=== PATIENT | male | born 1945 | race Caucasian/White ===

== ENCOUNTER 2018-03-30 11:08 | Emergency (ER) | payer MEDICARE, BC ==
[2018-03-30 11:13] VITALS: BP 103/50
[2018-03-30 12:28] LABS: ANION GAP 13.1; CHLORIDE,CL 102 mmol/L (101-111); SODIUM,NA 136 mmol/L (135-145)
--- NOTE | 2018-03-30 13:05 | EDM.PDOC ---
ED HPI GENERAL MEDICAL PROBLEM - General Chief Complaint: General Time Seen by Provider: 03/30/18 11:30 Source of Information: Reports: Patient, Family, RN, RN Notes Reviewed History Limitations: Reports: Other (lethargic) - History of Present Illness INITIAL COMMENTS - FREE TEXT/NARRATIVE: Patient presents to ER by [facility] with a complaint that he fell out of bed. He has weakness. states his speech was slurred this morning. states he was confused just after the incident. He has had diarrhea for 2 months and not eating well. He has shortness of breath which is chronic. He has had no chest pain. Onset: Today Duration: Constant Location: Reports: Generalized Quality: Reports: Ache Severity: Moderate Improves with: Reports: None Worsens with: Reports: None Associated Symptoms: Reports: No Other Symptoms - Related Data Allergies Allergy/AdvReac Type Severity Reaction Status Date / Time meperidine HCl [From Demerol] Allergy Agitation Verified 10/07/15 21:18 Home Meds: Home Meds Budesonide/Formoterol [Symbicort 160-4.5 Mcg Inhaler] 2 puff IH Q4H PRN [History] Citalopram [Celexa] 20 mg PO DAILY 11/07/15 [History] Colchicine [Colcrys] 0.6 mg PO ASDIRECTED PRN 11/07/15 [History] Hydrocodone/Acetaminophen [Hydrocodon-Acetaminophn 10-325] 1 each PO ASDIRECTED PRN 11/07/15 [History] Insulin Aspart [Novolog] 20 unit SQ TIDAC 11/07/15 [History] Insulin Glarg,Human.Rec.Analog [LantUS Solostar] 60 unit SUBCUT BEDTIME [History] Krill/Om-3/DHA/EPA/Phospho/Ast [Krill Oil 500 mg Softgel] 1 each PO DAILY [History] LORazepam [Ativan] 1 mg PO DAILY PRN 11/07/15 [History] Losartan Potassium [Cozaar] 100 mg PO DAILY 11/07/15 [History] Metoprolol Tartrate 50 mg PO BID 11/07/15 [History] QUEtiapine Fumarate [Seroquel] 50 mg PO BID 11/07/15 [History] SitaGLIPtin [Januvia] 100 mg PO DAILY 11/07/15 [History] Spironolactone [Aldactone] 25 mg PO DAILY 11/07/15 [History] Tamsulosin HCl 0.4 mg PO DAILY 11/07/15 [History] atorvaSTATin [Lipitor] 10 mg PO BEDTIME 11/07/15 [History] fentaNYL [Fentanyl] 25 mcg TD ASDIRECTED 11/07/15 [History] hydroCHLOROthiazide [Hydrochlorothiazide] 50 mg PO QAM 11/07/15 [History] metFORMIN [Glucophage XR] 500 mg PO BIDMEALS 11/07/15 [History] traZODone 100 mg PO BEDTIME 11/07/15 [History] Past Medical History - Past Health History Medical/Surgical History: Denies Medical/Surgical History HEENT History: Reports: Hard of Hearing, Impaired Vision Cardiovascular History: Reports: Hypertension Other Cardiovascular History: "heart problems" Respiratory History: Reports: COPD, Other (See Below) Other Respiratory History: related to second hand smoke exposure. Gastrointestinal History: Reports: None Genitourinary History: Reports: None Musculoskeletal History: Reports: Other (See Below) Other Musculoskeletal History: chronic hip pain Neurological History: Reports: None Psychiatric History: Reports: Dementia Endocrine/Metabolic History: Reports: Diabetes, Type II Hematologic History: Reports: None Immunologic History: Reports: None Oncologic (Cancer) History: Reports: Liver Dermatologic History: Reports: None - Infectious Disease History Infectious Disease History: Reports: None - Past Surgical History Head Surgeries/Procedures: Reports: None HEENT Surgical History: Reports: None Cardiovascular Surgical History: Reports: Other (See Below) (angioplasties) Social & Family History - Family History Family Medical History: Noncontributory - Tobacco Use Smoking Status *Q: Never Smoker Second Hand Smoke Exposure: No - Caffeine Use Caffeine Use: Reports: Coffee - Recreational Drug Use Recreational Drug Use: No ED ROS GENERAL - Review of Systems Review Of Systems: ROS reveals no pertinent complaints other than HPI. ED EXAM, GENERAL - Physical Exam Exam: See Below Exam Limited By: Other (somewhat lethargic) General Appearance: Other (lethargic) Eye Exam: Bilateral Eye: EOMI, Normal Inspection, PERRL Ears: Normal External Exam, Normal Canal, Hearing Grossly Normal, Normal TMs Nose: Normal Inspection, Normal Mucosa, No Blood Throat/Mouth: Normal Inspection, Normal Lips, Normal Teeth, Normal Gums, Normal Oropharynx, Normal Voice, No Airway Compromise Head: Atraumatic, Normocephalic Neck: Normal Inspection, Supple, Non-Tender, Full Range of Motion Respiratory/Chest: Other (lung sounds diminished) Cardiovascular: Normal Peripheral Pulses, Regular Rate, Rhythm, No Edema, No Gallop, No JVD, No Murmur, No Rub GI/Abdominal: Other (large and distended) (Male) Exam: Deferred Rectal (Males) Exam: Deferred Back Exam: Normal Inspection Extremities: Other (Shoulders strained from typing to lift self up. ) Neurological: Other (lethargic) Skin Exam: Other (left elbow skin tear) Lymphatic: Other (right post auriciular) EKG INTERPRETATION EKG Date: 03/30/18 Time: 12:00 Rhythm: Other (sinus bradycardia) Rate (Beats/Min): 52 P-Wave: Present QRS: RBBB ST-T: Normal QT: Prolonged Comparison: NA - No Prior EKG Course - Vital Signs Last Recorded V/S: Last Vital Signs Temp 97.3 F 03/30/18 11:08 Pulse 56 L 03/30/18 11:08 Resp 18 03/30/18 11:08 BP 103/50 L 03/30/18 11:08 Pulse Ox 95 03/30/18 11:08 - Orders/Labs/Meds Orders: Active Orders 24 hr Category Date Time Status EKG Documentation Completion [RC] STAT Care 03/30/18 11:43 Active Labs: Laboratory Tests 03/30/18 03/30/18 03/30/18 Range/Units 12:02 12:02 12:02 WBC 5.8 (5.0-10.0) 10^3/uL RBC 4.84 (4.6-6.2) 10^6/uL Hgb 13.2 L (14.0-18.0) g/dL Hct 42.2 (40.0-54.0) % MCV 87.2 (80-100) fL MCH 27.3 (27.0-34.0) pg MCHC 31.3 L (33.0-35.0) g/dL Plt Count 142 L (150-450) 10^3/uL Neut % (Auto) 63.8 (42.2-75.2) % Lymph % (Auto) 25.0 (20.5-50.1) % [place] % (Auto) 8.8 H (2-8) % Eos % (Auto) 2.1 (1.0-3.0) % Baso % (Auto) 0.3 (0.0-1.0) % PT 9.9 (9.0-12.0) SEC INR 1.0 (0.9-1.2) Sodium 136 (135-145) mmol/L Potassium 4.1 (3.6-5.0) mmol/L Chloride 102 (101-111) mmol/L Carbon Dioxide 25.0 (21.0-31.0) mmol/L Anion Gap 13.1 BUN 14 (7-18) mg/dL Creatinine 0.9 (0.6-1.3) mg/dL Est Cr Clr Drug Dosing 75.48 mL/min Estimated GFR (MDRD) > 60 BUN/Creatinine Ratio 15.55 Glucose 77 (74-105) mg/dL Calcium 8.1 L (8.4-10.2) mg/dl Total Bilirubin 0.6 (0.2-1.0) mg/dL AST 36 (10-42) IU/L ALT 29 (10-60) IU/L Alkaline Phosphatase 117 (42-121) IU/L Troponin I < 0.02 (0.00-0.02) ng/ml Total Protein 6.1 L (6.7-8.2) g/dl Albumin 2.3 L (3.2-5.5) g/dl Globulin 3.8 Albumin/Globulin Ratio 0.61 Urine Color (YELLOW) Urine Appearance (CLEAR) Urine pH (5.0-9.0) Ur Specific [place] (1.005-1.030) Urine Protein (NEGATIVE) Urine Glucose (UA) (NEGATIVE) Urine Ketones (NEGATIVE) Urine Occult Blood (NEGATIVE) Urine Nitrite (NEGATIVE) Urine Bilirubin (NEGATIVE) Urine Urobilinogen (0.2-1.0) mg/dL Ur Leukocyte Esterase (NEGATIVE) 03/30/18 Range/Units 13:10 WBC (5.0-10.0) 10^3/uL RBC (4.6-6.2) 10^6/uL Hgb (14.0-18.0) g/dL Hct (40.0-54.0) % MCV (80-100) fL MCH (27.0-34.0) pg MCHC (33.0-35.0) g/dL Plt Count (150-450) 10^3/uL Neut % (Auto) (42.2-75.2) % Lymph % (Auto) (20.5-50.1) % [place] % (Auto) (2-8) % Eos % (Auto) (1.0-3.0) % Baso % (Auto) (0.0-1.0) % PT (9.0-12.0) SEC INR (0.9-1.2) Sodium (135-145) mmol/L Potassium (3.6-5.0) mmol/L Chloride (101-111) mmol/L Carbon Dioxide (21.0-31.0) mmol/L Anion Gap BUN (7-18) mg/dL Creatinine (0.6-1.3) mg/dL Est Cr Clr Drug Dosing mL/min Estimated GFR (MDRD) BUN/Creatinine Ratio Glucose (74-105) mg/dL Calcium (8.4-10.2) mg/dl Total Bilirubin (0.2-1.0) mg/dL AST (10-42) IU/L ALT (10-60) IU/L Alkaline Phosphatase (42-121) IU/L Troponin I (0.00-0.02) ng/ml Total Protein (6.7-8.2) g/dl Albumin (3.2-5.5) g/dl Globulin Albumin/Globulin Ratio Urine Color Yellow (YELLOW) Urine Appearance Clear (CLEAR) Urine pH 7.0 (5.0-9.0) Ur Specific [place] 1.015 (1.005-1.030) Urine Protein Negative (NEGATIVE) Urine Glucose (UA) Negative (NEGATIVE) Urine Ketones Negative (NEGATIVE) Urine Occult Blood Negative (NEGATIVE) Urine Nitrite Negative (NEGATIVE) Urine Bilirubin Negative (NEGATIVE) Urine Urobilinogen 1.0 (0.2-1.0) mg/dL Ur Leukocyte Esterase Negative (NEGATIVE) - Radiology Interpretation Free Text/Narrative:: CT head w/o contrast: FINDINGS: Brain: Prominent sulci. Patchy hypodensity of the cerebral white matter which are nonspecific but likely secondary to microangiopathic changes. Ventricles: The ventricles are prominent secondary to diffuse volume loss/ atrophy. Bones/joints: Normal. No acute fracture. Sinuses: Normal as visualized. No acute sinusitis. Mastoid air cells: Normal as visualized. No mastoid effusion. Soft tissues: Normal. IMPRESSION: Chronic age related changes but no evidence of acute intracranial pathology. Thank you for allowing us to participate in the care of your patient. Dictated and Authenticated by: Norma Pickard MD 03/30/2018 12:03 PM Central Time ([place] & [place]) See rad report Departure - Departure Time of Disposition: 13:27 Disposition: Home, Self-Care 01 Condition: Fair Clinical Impression: Generalized weakness Fall at home Qualifiers: Encounter type: initial encounter Qualified Code(s): W19.XXXA - Unspecified fall, initial encounter Skin tear of elbow without complication Qualifiers: Encounter type: initial encounter Laterality: left Qualified Code(s): S51.012A - Laceration without foreign body of left elbow, initial encounter - Discharge Information *PRESCRIPTION DRUG MONITORING PROGRAM REVIEWED*: No *COPY OF PRESCRIPTION DRUG MONITORING REPORT IN PATIENT LOBO: No Instructions: Skin Tear Care, [id number], Weakness, [id number] Referrals: Beryl Syed, INSURANCE COUNSEL [Primary Care Provider] - Forms: ED Department Discharge Additional Instructions: Rest Follow up with your primary care facility - My Orders Last 24 Hours: My Active Orders 03/30/18 11:43 EKG Documentation Completion [RC] STAT - Assessment/Plan Last 24 Hours: My Active Orders 03/30/18 11:43 EKG Documentation Completion [RC] STAT
== END 2018-03-30 13:40 | disposition home or self-care (01) ==
LOC: DL.ED 11:08
DX: S51.012A Laceration without foreign body of left elbow, initial encounter (principal); R53.1 Weakness; E11.9 Type 2 diabetes mellitus without complications; I10 Essential (primary) hypertension; J44.9 Chronic obstructive pulmonary disease, unspecified; W19.XXXA Unspecified fall, initial encounter; Z88.8 Allergy status to other drugs, medicaments and biological substances; Z79.899 Other long term (current) drug therapy
CPT/HCPCS: 36415; 70450; 80053; 81003; 84484; 85025; 85610; 93005; 99285

== ENCOUNTER 2018-07-07 20:47 | Inpatient (IN) | payer MEDICARE, BC ==
--- NOTE | 2018-07-07 21:09 | EDM.PDOC ---
ED HPI GENERAL MEDICAL PROBLEM - General Chief Complaint: General Stated Complaint: AMBULANCE Time Seen by Provider: 07/07/18 21:07 Source of Information: Reports: Patient, EMS, Family, RN History Limitations: Reports: No Limitations - History of Present Illness INITIAL COMMENTS - FREE TEXT/NARRATIVE: fall at home last matty, hit head, hypoglycemic episode, weaker over past 6 months , [place] warm tonight and vomited x 2 tonight so called ambulance. Ambulatory at home with walker lives with . States hit back of head and right side of neck on door frame last matty. No loss of consciousness, Pain c/o lateral but not different before fall. 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 Fell last week while in qing against car, multiple skin tears to right forearm, Patient states feel like legs give out, and balance has been poor. Family friend reports patient has minimal activity spends most of day in chair only getting up to use bathroom, Even eats in chair. Uses walker when ambulating. Remote hx liver cancer. Remote hx [facility] 40 years ago. Seen at [facility] last week for hypoglycemic episode and Lantus insulin decreased from 82 units at bed to 55 units. also noted that appeared patient doubled up on night time meds last matty as 2 night boxes empty. Patient denies pain at present No nausea. EMS blood sugar 104. Primary care with [facility] Beryl Syed NP. Receives medications through ID. Has not been seen regularly by ID, only for puprose of medication refills and hearing aides. Family friend notes some concern with multiple medical issues ore overwhelming to and questions if possible for home health assistance would be available. Treatments INSPECTOR INSULATION: Reports: IV/IO Generalized Pain Score (Numeric/FACES): 7 - Related Data Allergies Allergy/AdvReac Type Severity Reaction Status Date / Time meperidine HCl [From Demerol] Allergy Agitation Verified 07/07/18 21:01 Home Meds: Home Meds Citalopram [Celexa] 20 mg PO DAILY 11/07/15 [History] Insulin Aspart [Novolog] 20 unit SQ TIDAC 11/07/15 [History] Insulin Glarg,Human.Rec.Analog [LantUS Solostar] 60 unit SUBCUT BEDTIME [History] Krill/Om-3/DHA/EPA/Phospho/Ast [Krill Oil 500 mg Softgel] 1 each PO DAILY [History] Losartan Potassium [Cozaar] 100 mg PO DAILY 11/07/15 [History] Metoprolol Tartrate 50 mg PO BID 11/07/15 [History] Tamsulosin HCl 0.4 mg PO DAILY 11/07/15 [History] atorvaSTATin [Lipitor] 20 mg PO BEDTIME 11/07/15 [History] metFORMIN [Glucophage XR] 1,000 mg PO BIDMEALS 11/07/15 [History] traZODone 50 mg PO BEDTIME 11/07/15 [History] Aspirin 81 mg PO DAILY 07/07/18 [History] ClonazePAM [KlonoPIN] 0.5 mg PO BID 07/07/18 [History] Ibuprofen 200 mg PO ASDIRECTED PRN 07/07/18 [History] Isosorbide Dinitrate 30 mg PO DAILY 07/07/18 [History] Past Medical History - Past Health History Medical/Surgical History: Denies Medical/Surgical History HEENT History: Reports: Hard of Hearing, Impaired Vision Cardiovascular History: Reports: Hypertension Other Cardiovascular History: "heart problems" Respiratory History: Reports: COPD, Other (See Below) Other Respiratory History: related to second hand smoke exposure. Gastrointestinal History: Reports: None Genitourinary History: Reports: None Musculoskeletal History: Reports: Other (See Below) Other Musculoskeletal History: chronic hip pain Neurological History: Reports: None Psychiatric History: Reports: Dementia Endocrine/Metabolic History: Reports: Diabetes, Type II Hematologic History: Reports: None Immunologic History: Reports: None Oncologic (Cancer) History: Reports: Liver Dermatologic History: Reports: None - Infectious Disease History Infectious Disease History: Reports: None - Past Surgical History Head Surgeries/Procedures: Reports: None HEENT Surgical History: Reports: None Cardiovascular Surgical History: Reports: Other (See Below) Social & Family History - Family History Family Medical History: Noncontributory - Tobacco Use Smoking Status *Q: Former Smoker Used Tobacco, but Quit: No - Caffeine Use Caffeine Use: Reports: Coffee - Recreational Drug Use Recreational Drug Use: No ED ROS GENERAL - Review of Systems Review Of Systems: See Below Constitutional: Reports: Weakness, Decreased Appetite HEENT: Reports: Hearing Loss Respiratory: Denies: Shortness of Breath, Wheezing Cardiovascular: Denies: Chest Pain, Lightheadedness, Orthopnea, Palpitations Endocrine: Reports: Low Glucose GI/Abdominal: Reports: Decreased Appetite, Vomiting (x2). Denies: Abdominal Pain, Nausea Skin: Reports: Bruising, Wound (mulitiple skin tears to upper extremities) Neurological: Reports: Weakness (generalized), Gait Disturbance (poor balance, unchanged since recent falls). Denies: Confusion, Dizziness, Headache, Seizure , Trouble Speaking, Change in Speech ED EXAM, GENERAL - Physical Exam Exam: See Below Exam Limited By: No Limitations General Appearance: Alert, No Apparent Distress, Obese Eye Exam: Bilateral Eye: EOMI Ears: Normal External Exam, Hearing Loss (mild) Nose: Normal Inspection Throat/Mouth: Normal Inspection Head: Atraumatic, Normocephalic, Other (tender right lateral occipital ) Respiratory/Chest: No Respiratory Distress, Decreased Breath Sounds (bases). No : Rhonchi, Wheezing Cardiovascular: Normal Peripheral Pulses, Regular Rate, Rhythm, Tachycardia. No : No Edema (2) GI/Abdominal: Normal Bowel Sounds, Soft Extremities: Normal Range of Motion Neurological: Alert, Oriented, Normal Cognition Psychiatric: Normal Affect Skin Exam: Warm, Dry Course - Vital Signs Last Recorded V/S: Last Vital Signs Temp 97.8 F 07/08/18 00:01 Pulse 96 07/08/18 00:01 Resp 20 07/08/18 00:01 BP 131/64 07/08/18 00:01 Pulse Ox 93 L 07/08/18 00:01 - Orders/Labs/Meds Orders: Active Orders 24 hr Category Date Time Status CULTURE BLOOD [BC] Stat Lab 07/07/18 21:15 Results CULTURE BLOOD [BC] Stat Lab 07/07/18 21:20 Received Blood Culture x2 Reflex Set [OM.PC] Stat Oth 07/07/18 21:03 Ordered Medication Orders Aspirin (Aspirin) 81 mg PO DAILY [facility] Atorvastatin Calcium (Lipitor) 20 mg PO BEDTIME STEVE Citalopram Hydrobromide (Celexa) 20 mg PO DAILY [facility] Clonazepam (Klonopin) 0.5 mg PO BID [facility] Heparin Sodium (Porcine) (Heparin Sodium) 5,000 units SUBCUT Q8HR [facility] Potassium Chloride/Dextrose/Sod Cl (D5 Ns With 20 Meq Kcl) 1,000 mls @ 75 mls/ hr IV ASDIRECTED STEVE Last Admin: 07/08/18 00:58 Dose: 75 mls/hr Isosorbide Dinitrate (Isordil) 30 mg PO DAILY [facility] Losartan Potassium (Cozaar) 100 mg PO DAILY [facility] Metoprolol Tartrate (Lopressor) 50 mg PO BID [facility] Ondansetron HCl (Zofran) 4 mg IVPUSH Q6H PRN PRN Reason: Nausea/Vomiting Tamsulosin HCl (Flomax) 0.4 mg PO DAILY [facility] Trazodone HCl (Trazodone) 50 mg PO BEDTIME [facility] Labs: Laboratory Tests 07/07/18 07/07/18 07/07/18 Range/Units 21:20 21:20 21:20 WBC 8.5 (5.0-10.0) 10^3/uL RBC 5.61 (4.6-6.2) 10^6/uL Hgb 15.4 D (14.0-18.0) g/dL Hct 47.5 (40.0-54.0) % MCV 84.7 (80-100) fL MCH 27.5 (27.0-34.0) pg MCHC 32.4 L (33.0-35.0) g/dL Plt Count 137 L (150-450) 10^3/uL Neut % (Auto) 73.0 (42.2-75.2) % Lymph % (Auto) 17.3 L (20.5-50.1) % [place] % (Auto) 8.9 H (2-8) % Eos % (Auto) 0.6 L (1.0-3.0) % Baso % (Auto) 0.2 (0.0-1.0) % PT (9.0-12.0) SEC INR (0.9-1.2) Sodium 137 (135-145) mmol/L Potassium 4.1 (3.6-5.0) mmol/L Chloride 107 (101-111) mmol/L Carbon Dioxide 22.0 (21.0-31.0) mmol/L Anion Gap 12.1 BUN 17 (7-18) mg/dL Creatinine 0.9 (0.6-1.3) mg/dL Est Cr Clr Drug Dosing 76.67 mL/min Estimated GFR (MDRD) > 60 BUN/Creatinine Ratio 18.88 Glucose 88 (74-105) mg/dL POC Glucose (83-110) mg/dl Lactic Acid 1.6 (0.5-2.2) mmol/L Calcium 8.3 L (8.4-10.2) mg/dl Total Bilirubin 0.9 (0.2-1.0) mg/dL AST 38 (10-42) IU/L ALT 28 (10-60) IU/L Alkaline Phosphatase 149 H (42-121) IU/L CK-MB (CK-2) (0.4-4.7) ng/mL Troponin I 0.02 (0.00-0.02) ng/ml B-Natriuretic Peptide (0-100) pg/ml Total Protein 6.4 L (6.7-8.2) g/dl Albumin 2.6 L (3.2-5.5) g/dl Globulin 3.8 Albumin/Globulin Ratio 0.68 Amylase 30 (28-100) U/L Urine Color (YELLOW) Urine Appearance (CLEAR) Urine pH (5.0-9.0) Ur Specific [place] (1.005-1.030) Urine Protein (NEGATIVE) Urine Glucose (UA) (NEGATIVE) Urine Ketones (NEGATIVE) Urine Occult Blood (NEGATIVE) Urine Nitrite (NEGATIVE) Urine Bilirubin (NEGATIVE) Urine Urobilinogen (0.2-1.0) mg/dL Ur Leukocyte Esterase (NEGATIVE) Ketones Negative 07/07/18 07/07/18 07/07/18 Range/Units 21:20 21:20 21:20 WBC (5.0-10.0) 10^3/uL RBC (4.6-6.2) 10^6/uL Hgb (14.0-18.0) g/dL Hct (40.0-54.0) % MCV (80-100) fL MCH (27.0-34.0) pg MCHC (33.0-35.0) g/dL Plt Count (150-450) 10^3/uL Neut % (Auto) (42.2-75.2) % Lymph % (Auto) (20.5-50.1) % [place] % (Auto) (2-8) % Eos % (Auto) (1.0-3.0) % Baso % (Auto) (0.0-1.0) % PT 10.0 (9.0-12.0) SEC INR 1.0 (0.9-1.2) Sodium (135-145) mmol/L Potassium (3.6-5.0) mmol/L Chloride (101-111) mmol/L Carbon Dioxide (21.0-31.0) mmol/L Anion Gap BUN (7-18) mg/dL Creatinine (0.6-1.3) mg/dL Est Cr Clr Drug Dosing mL/min Estimated GFR (MDRD) BUN/Creatinine Ratio Glucose (74-105) mg/dL POC Glucose (83-110) mg/dl Lactic Acid (0.5-2.2) mmol/L Calcium (8.4-10.2) mg/dl Total Bilirubin (0.2-1.0) mg/dL AST (10-42) IU/L ALT (10-60) IU/L Alkaline Phosphatase (42-121) IU/L CK-MB (CK-2) 2.00 (0.4-4.7) ng/mL Troponin I (0.00-0.02) ng/ml B-Natriuretic Peptide 76 (0-100) pg/ml Total Protein (6.7-8.2) g/dl Albumin (3.2-5.5) g/dl Globulin Albumin/Globulin Ratio Amylase (28-100) U/L Urine Color (YELLOW) Urine Appearance (CLEAR) Urine pH (5.0-9.0) Ur Specific [place] (1.005-1.030) Urine Protein (NEGATIVE) Urine Glucose (UA) (NEGATIVE) Urine Ketones (NEGATIVE) Urine Occult Blood (NEGATIVE) Urine Nitrite (NEGATIVE) Urine Bilirubin (NEGATIVE) Urine Urobilinogen (0.2-1.0) mg/dL Ur Leukocyte Esterase (NEGATIVE) Ketones 07/07/18 07/07/18 07/07/18 Range/Units 21:24 22:03 22:50 WBC (5.0-10.0) 10^3/uL RBC (4.6-6.2) 10^6/uL Hgb (14.0-18.0) g/dL Hct (40.0-54.0) % MCV (80-100) fL MCH (27.0-34.0) pg MCHC (33.0-35.0) g/dL Plt Count (150-450) 10^3/uL Neut % (Auto) (42.2-75.2) % Lymph % (Auto) (20.5-50.1) % [place] % (Auto) (2-8) % Eos % (Auto) (1.0-3.0) % Baso % (Auto) (0.0-1.0) % PT (9.0-12.0) SEC INR (0.9-1.2) Sodium (135-145) mmol/L Potassium (3.6-5.0) mmol/L Chloride (101-111) mmol/L Carbon Dioxide (21.0-31.0) mmol/L Anion Gap BUN (7-18) mg/dL Creatinine (0.6-1.3) mg/dL Est Cr Clr Drug Dosing mL/min Estimated GFR (MDRD) BUN/Creatinine Ratio Glucose (74-105) mg/dL POC Glucose 66 L 118 H (83-110) mg/dl Lactic Acid (0.5-2.2) mmol/L Calcium (8.4-10.2) mg/dl Total Bilirubin (0.2-1.0) mg/dL AST (10-42) IU/L ALT (10-60) IU/L Alkaline Phosphatase (42-121) IU/L CK-MB (CK-2) (0.4-4.7) ng/mL Troponin I (0.00-0.02) ng/ml B-Natriuretic Peptide (0-100) pg/ml Total Protein (6.7-8.2) g/dl Albumin (3.2-5.5) g/dl Globulin Albumin/Globulin Ratio Amylase (28-100) U/L Urine Color Yellow (YELLOW) Urine Appearance Clear (CLEAR) Urine pH 5.5 (5.0-9.0) Ur Specific [place] 1.015 (1.005-1.030) Urine Protein Negative (NEGATIVE) Urine Glucose (UA) Negative (NEGATIVE) Urine Ketones Negative (NEGATIVE) Urine Occult Blood Negative (NEGATIVE) Urine Nitrite Negative (NEGATIVE) Urine Bilirubin Negative (NEGATIVE) Urine Urobilinogen 1.0 (0.2-1.0) mg/dL Ur Leukocyte Esterase Negative (NEGATIVE) Ketones 07/07/18 Range/Units 23:28 WBC (5.0-10.0) 10^3/uL RBC (4.6-6.2) 10^6/uL Hgb (14.0-18.0) g/dL Hct (40.0-54.0) % MCV (80-100) fL MCH (27.0-34.0) pg MCHC (33.0-35.0) g/dL Plt Count (150-450) 10^3/uL Neut % (Auto) (42.2-75.2) % Lymph % (Auto) (20.5-50.1) % [place] % (Auto) (2-8) % Eos % (Auto) (1.0-3.0) % Baso % (Auto) (0.0-1.0) % PT (9.0-12.0) SEC INR (0.9-1.2) Sodium (135-145) mmol/L Potassium (3.6-5.0) mmol/L Chloride (101-111) mmol/L Carbon Dioxide (21.0-31.0) mmol/L Anion Gap BUN (7-18) mg/dL Creatinine (0.6-1.3) mg/dL Est Cr Clr Drug Dosing mL/min Estimated GFR (MDRD) BUN/Creatinine Ratio Glucose (74-105) mg/dL POC Glucose 67 L (83-110) mg/dl Lactic Acid (0.5-2.2) mmol/L Calcium (8.4-10.2) mg/dl Total Bilirubin (0.2-1.0) mg/dL AST (10-42) IU/L ALT (10-60) IU/L Alkaline Phosphatase (42-121) IU/L CK-MB (CK-2) (0.4-4.7) ng/mL Troponin I (0.00-0.02) ng/ml B-Natriuretic Peptide (0-100) pg/ml Total Protein (6.7-8.2) g/dl Albumin (3.2-5.5) g/dl Globulin Albumin/Globulin Ratio Amylase (28-100) U/L Urine Color (YELLOW) Urine Appearance (CLEAR) Urine pH (5.0-9.0) Ur Specific [place] (1.005-1.030) Urine Protein (NEGATIVE) Urine Glucose (UA) (NEGATIVE) Urine Ketones (NEGATIVE) Urine Occult Blood (NEGATIVE) Urine Nitrite (NEGATIVE) Urine Bilirubin (NEGATIVE) Urine Urobilinogen (0.2-1.0) mg/dL Ur Leukocyte Esterase (NEGATIVE) Ketones Meds: Medications Generic Name Dose Route Start Last Admin Trade Name Freq PRN Reason Stop Dose Admin Aspirin 81 mg 07/08/18 09:00 Aspirin PO DAILY [facility] Atorvastatin Calcium 20 mg 07/08/18 21:00 Lipitor PO BEDTIME [facility] Citalopram Hydrobromide 20 mg 07/08/18 09:00 Celexa PO DAILY [facility] Clonazepam 0.5 mg 07/08/18 09:00 Klonopin PO BID [facility] Heparin Sodium (Porcine) 5,000 units 07/08/18 06:00 Heparin Sodium SUBCUT Q8HR [facility] Potassium Chloride/Dextrose/Sod Cl 1,000 mls @ 75 mls/hr 07/08/18 00:15 07/08 00:58 D5 Ns With 20 Meq Kcl IV 75 mls/hr ASDIRECTED STEVE Administration Isosorbide Dinitrate 30 mg 07/08/18 09:00 Isordil PO DAILY [facility] Losartan Potassium 100 mg 07/08/18 09:00 Cozaar PO DAILY [facility] Metoprolol Tartrate 50 mg 07/08/18 09:00 Lopressor PO BID [facility] Ondansetron HCl 4 mg 07/08/18 00:01 Zofran IVPUSH Q6H PRN Nausea/Vomiting Tamsulosin HCl 0.4 mg 07/08/18 09:00 Flomax PO DAILY [facility] Trazodone HCl 50 mg 07/08/18 21:00 Trazodone PO BEDTIME [facility] Discontinued Medications Generic Name Dose Route Start Last Admin Trade Name Freq PRN Reason Stop Dose Admin Dextrose/Water 50 ml 07/07/18 21:25 07/07/18 21:40 Dextrose 50% In Water IVPUSH 07/07/18 21:26 50 ml ONETIME ONE Administration Dextrose/Water 25 ml 07/07/18 23:31 07/07/18 23:38 Dextrose 50% In Water IVPUSH 07/07/18 23:32 25 ml ONETIME ONE Administration Sodium Chloride 1,000 mls @ 999 mls/hr 07/07/18 21:26 07/07/18 22:01 Normal Saline IV 07/07/18 22:26 150 mls/hr .BOLUS ONE Infusion Ondansetron HCl 4 mg 07/07/18 23:54 07/07/18 23:59 Zofran IV 07/07/18 23:55 4 mg ONETIME ONE Administration - Re-Assessments/Exams Free Text/Narrative Re-Assessment/Exam: 07/07/18 23:55 tolerated po 7up. Attempted partial sandwich, nausea no vomiting. Given Zofran. Dr. Donald [facility] Hospitalist here to assess patient, Agree to admit observation. Departure - Departure Time of Disposition: 00:01 Disposition: Refer to Observation Condition: Good Clinical Impression: Multiple falls, Skin tear, Hypoglycemia, History of liver cancer Chronic pain Qualifiers: Chronic pain type: chronic pain syndrome Qualified Code(s): G89.4 - Chronic pain syndrome - Discharge Information - My Orders Last 24 Hours: My Active Orders 07/07/18 21:03 Blood Culture x2 Reflex Set [OM.PC] Stat 07/07/18 21:15 CULTURE BLOOD [BC] Stat 07/07/18 21:20 CULTURE BLOOD [BC] Stat - Assessment/Plan Last 24 Hours: My Active Orders 07/07/18 21:03 Blood Culture x2 Reflex Set [OM.PC] Stat 07/07/18 21:15 CULTURE BLOOD [BC] Stat 07/07/18 21:20 CULTURE BLOOD [BC] Stat
[2018-07-07] MEDS ORDERED: 50% Dextrose in Water 50 ML Syringe IVPUSH ONE ×2 (21:25→23:31)
[2018-07-07] MEDS ORDERED: Sodium Chloride 0.9% 1,000 ML IV ONE (21:26)
[2018-07-07 21:45] LABS: ANION GAP 12.1; CHLORIDE,CL 107 mmol/L (101-111); SODIUM,NA 137 mmol/L (135-145)
[2018-07-07] MEDS ORDERED: Ondansetron 4 MG/2 ML SDV IV ONE (23:54)
[2018-07-08] MEDS ORDERED: Ondansetron 4 MG/2 ML SDV IVPUSH PRN (00:01)
--- NOTE | 2018-07-08 00:14 | PCM.HP ---
H&P History of Present Illness - General Date of Service: 07/08/18 Admit Problem/Dx: Admission Diagnosis/Problem Admission Diagnosis/Problem Hypoglycemia - History of Present Illness Initial Comments - Free Text/Narative: Mr Rg is a 73 -year-old male with past medical history significant for hypertension, CAD, type 2 diabetes, history of liver cancer status post removal who presented to the emergency room one day after a fall and head trauma as well as progressive weakness. Patient has been having episodes of hypoglycemia for the past few weeks, and he was recently in [place] where he had a episode of hypoglycemia that required EMS intervention. At the time his long-acting insulin was decreased from 80 units to 55 units. He continued to have hypoglycemic episodes, and his most recent episode was yesterday. Police was called and they help the patient up and he refused to come to the emergency room. Of note, patient did not lose consciousness but he felt that his legs became weak. He said that he had a significant head trauma on he felt that he cracked his head. He denied any loss of consciousness, headaches, any presyncopal symptoms. Patient continues to be wheezing therefore his decided to bring him to the emergency room. In ED, patient underwent CT of head and neck, both were negative for any further acute fractures. EKG showed sinus tachycardia with right bundle. This lab was remarkable for glucose of 67, platelet 137. He was transferred for further care. Generalized Pain Score (Numeric/FACES): 7 - Related Data Allergies/Adverse Reactions: Allergies Allergy/AdvReac Type Severity Reaction Status Date / Time meperidine HCl [From Demerol] Allergy Agitation Verified 07/07/18 21:01 Home Medications: Home Meds Citalopram [Celexa] 20 mg PO DAILY 11/07/15 [History] Insulin Aspart [Novolog] 20 unit SQ TIDAC 11/07/15 [History] Insulin Glarg,Human.Rec.Analog [LantUS Solostar] 60 unit SUBCUT BEDTIME [History] Krill/Om-3/DHA/EPA/Phospho/Ast [Krill Oil 500 mg Softgel] 1 each PO DAILY [History] Losartan Potassium [Cozaar] 100 mg PO DAILY 11/07/15 [History] Metoprolol Tartrate 50 mg PO BID 11/07/15 [History] Tamsulosin HCl 0.4 mg PO DAILY 11/07/15 [History] atorvaSTATin [Lipitor] 20 mg PO BEDTIME 11/07/15 [History] metFORMIN [Glucophage XR] 1,000 mg PO BIDMEALS 11/07/15 [History] traZODone 50 mg PO BEDTIME 11/07/15 [History] Aspirin 81 mg PO DAILY 07/07/18 [History] ClonazePAM [KlonoPIN] 0.5 mg PO BID 07/07/18 [History] Ibuprofen 200 mg PO ASDIRECTED PRN 07/07/18 [History] Isosorbide Dinitrate 30 mg PO DAILY 07/07/18 [History] Past Medical History - Past Health History Medical/Surgical History: Denies Medical/Surgical History HEENT History: Reports: Hard of Hearing, Impaired Vision Cardiovascular History: Reports: Hypertension Other Cardiovascular History: "heart problems" Respiratory History: Reports: COPD, Other (See Below) Other Respiratory History: related to second hand smoke exposure. Gastrointestinal History: Reports: None Genitourinary History: Reports: None Musculoskeletal History: Reports: Other (See Below) Other Musculoskeletal History: chronic hip pain Neurological History: Reports: None Psychiatric History: Reports: Dementia Endocrine/Metabolic History: Reports: Diabetes, Type II Hematologic History: Reports: None Immunologic History: Reports: None Oncologic (Cancer) History: Reports: Liver Dermatologic History: Reports: None - Infectious Disease History Infectious Disease History: Reports: None - Past Surgical History Head Surgeries/Procedures: Reports: None HEENT Surgical History: Reports: None Cardiovascular Surgical History: Reports: Other (See Below) Social & Family History - Family History Family Medical History: Noncontributory - Tobacco Use Smoking Status *Q: Former Smoker Used Tobacco, but Quit: No - Caffeine Use Caffeine Use: Reports: Coffee - Recreational Drug Use Recreational Drug Use: No H&P Review of Systems - Review of Systems: Review Of Systems: See Below General: Reports: No Symptoms HEENT: Reports: No Symptoms Pulmonary: Reports: No Symptoms Cardiovascular: Reports: No Symptoms Gastrointestinal: Reports: No Symptoms Genitourinary: Reports: No Symptoms Musculoskeletal: Reports: Other (Generalized weakness) Skin: Reports: Bruising Neurological: Reports: Weakness Exam - Exam Exam: See Below - Vital Signs Vital Signs: Last Vital Signs Temp 37.2 C 07/07/18 21:49 Pulse 118 H 07/07/18 21:49 Resp 24 H 07/07/18 21:49 BP 117/72 07/07/18 21:49 Pulse Ox 95 07/07/18 21:49 Weight: 136.078 kg - Exam General: Alert, Oriented HEENT: Conjunctiva Clear Neck: Supple Lungs: Clear to Auscultation, Normal Respiratory Effort Cardiovascular: Regular Rate, Regular Rhythm GI/Abdominal Exam: Normal Bowel Sounds, Soft, Non-Tender, No Distention, Other ( Scar consistent with previous liver surgery) Extremities: Normal Inspection, No Pedal Edema Skin: Warm, Dry, Intact Neuro Extensive - Mental Status: Alert, Oriented x3 Psychiatric: Alert, Normal Affect, Normal Mood - Patient Data Lab Results Last 24 hrs: Laboratory Results - last 24 hr 07/07/18 07/07/18 07/07/18 Range/Units 21:20 21:20 21:20 WBC 8.5 (5.0-10.0) 10^3/uL RBC 5.61 (4.6-6.2) 10^6/uL Hgb 15.4 D (14.0-18.0) g/dL Hct 47.5 (40.0-54.0) % MCV 84.7 (80-100) fL MCH 27.5 (27.0-34.0) pg MCHC 32.4 L (33.0-35.0) g/dL Plt Count 137 L (150-450) 10^3/uL Neut % (Auto) 73.0 (42.2-75.2) % Lymph % (Auto) 17.3 L (20.5-50.1) % [place] % (Auto) 8.9 H (2-8) % Eos % (Auto) 0.6 L (1.0-3.0) % Baso % (Auto) 0.2 (0.0-1.0) % PT (9.0-12.0) SEC INR (0.9-1.2) Sodium 137 (135-145) mmol/L Potassium 4.1 (3.6-5.0) mmol/L Chloride 107 (101-111) mmol/L Carbon Dioxide 22.0 (21.0-31.0) mmol/L Anion Gap 12.1 BUN 17 (7-18) mg/dL Creatinine 0.9 (0.6-1.3) mg/dL Est Cr Clr Drug Dosing 76.67 mL/min Estimated GFR (MDRD) > 60 BUN/Creatinine Ratio 18.88 Glucose 88 (74-105) mg/dL POC Glucose (83-110) mg/dl Lactic Acid 1.6 (0.5-2.2) mmol/L Calcium 8.3 L (8.4-10.2) mg/dl Total Bilirubin 0.9 (0.2-1.0) mg/dL AST 38 (10-42) IU/L ALT 28 (10-60) IU/L Alkaline Phosphatase 149 H (42-121) IU/L CK-MB (CK-2) (0.4-4.7) ng/mL Troponin I 0.02 (0.00-0.02) ng/ml B-Natriuretic Peptide (0-100) pg/ml Total Protein 6.4 L (6.7-8.2) g/dl Albumin 2.6 L (3.2-5.5) g/dl Globulin 3.8 Albumin/Globulin Ratio 0.68 Amylase 30 (28-100) U/L Urine Color (YELLOW) Urine Appearance (CLEAR) Urine pH (5.0-9.0) Ur Specific [place] (1.005-1.030) Urine Protein (NEGATIVE) Urine Glucose (UA) (NEGATIVE) Urine Ketones (NEGATIVE) Urine Occult Blood (NEGATIVE) Urine Nitrite (NEGATIVE) Urine Bilirubin (NEGATIVE) Urine Urobilinogen (0.2-1.0) mg/dL Ur Leukocyte Esterase (NEGATIVE) Ketones Negative 07/07/18 07/07/18 07/07/18 Range/Units 21:20 21:20 21:20 WBC (5.0-10.0) 10^3/uL RBC (4.6-6.2) 10^6/uL Hgb (14.0-18.0) g/dL Hct (40.0-54.0) % MCV (80-100) fL MCH (27.0-34.0) pg MCHC (33.0-35.0) g/dL Plt Count (150-450) 10^3/uL Neut % (Auto) (42.2-75.2) % Lymph % (Auto) (20.5-50.1) % [place] % (Auto) (2-8) % Eos % (Auto) (1.0-3.0) % Baso % (Auto) (0.0-1.0) % PT 10.0 (9.0-12.0) SEC INR 1.0 (0.9-1.2) Sodium (135-145) mmol/L Potassium (3.6-5.0) mmol/L Chloride (101-111) mmol/L Carbon Dioxide (21.0-31.0) mmol/L Anion Gap BUN (7-18) mg/dL Creatinine (0.6-1.3) mg/dL Est Cr Clr Drug Dosing mL/min Estimated GFR (MDRD) BUN/Creatinine Ratio Glucose (74-105) mg/dL POC Glucose (83-110) mg/dl Lactic Acid (0.5-2.2) mmol/L Calcium (8.4-10.2) mg/dl Total Bilirubin (0.2-1.0) mg/dL AST (10-42) IU/L ALT (10-60) IU/L Alkaline Phosphatase (42-121) IU/L CK-MB (CK-2) 2.00 (0.4-4.7) ng/mL Troponin I (0.00-0.02) ng/ml B-Natriuretic Peptide 76 (0-100) pg/ml Total Protein (6.7-8.2) g/dl Albumin (3.2-5.5) g/dl Globulin Albumin/Globulin Ratio Amylase (28-100) U/L Urine Color (YELLOW) Urine Appearance (CLEAR) Urine pH (5.0-9.0) Ur Specific [place] (1.005-1.030) Urine Protein (NEGATIVE) Urine Glucose (UA) (NEGATIVE) Urine Ketones (NEGATIVE) Urine Occult Blood (NEGATIVE) Urine Nitrite (NEGATIVE) Urine Bilirubin (NEGATIVE) Urine Urobilinogen (0.2-1.0) mg/dL Ur Leukocyte Esterase (NEGATIVE) Ketones 07/07/18 07/07/18 07/07/18 Range/Units 21:24 22:03 22:50 WBC (5.0-10.0) 10^3/uL RBC (4.6-6.2) 10^6/uL Hgb (14.0-18.0) g/dL Hct (40.0-54.0) % MCV (80-100) fL MCH (27.0-34.0) pg MCHC (33.0-35.0) g/dL Plt Count (150-450) 10^3/uL Neut % (Auto) (42.2-75.2) % Lymph % (Auto) (20.5-50.1) % [place] % (Auto) (2-8) % Eos % (Auto) (1.0-3.0) % Baso % (Auto) (0.0-1.0) % PT (9.0-12.0) SEC INR (0.9-1.2) Sodium (135-145) mmol/L Potassium (3.6-5.0) mmol/L Chloride (101-111) mmol/L Carbon Dioxide (21.0-31.0) mmol/L Anion Gap BUN (7-18) mg/dL Creatinine (0.6-1.3) mg/dL Est Cr Clr Drug Dosing mL/min Estimated GFR (MDRD) BUN/Creatinine Ratio Glucose (74-105) mg/dL POC Glucose 66 L 118 H (83-110) mg/dl Lactic Acid (0.5-2.2) mmol/L Calcium (8.4-10.2) mg/dl Total Bilirubin (0.2-1.0) mg/dL AST (10-42) IU/L ALT (10-60) IU/L Alkaline Phosphatase (42-121) IU/L CK-MB (CK-2) (0.4-4.7) ng/mL Troponin I (0.00-0.02) ng/ml B-Natriuretic Peptide (0-100) pg/ml Total Protein (6.7-8.2) g/dl Albumin (3.2-5.5) g/dl Globulin Albumin/Globulin Ratio Amylase (28-100) U/L Urine Color Yellow (YELLOW) Urine Appearance Clear (CLEAR) Urine pH 5.5 (5.0-9.0) Ur Specific [place] 1.015 (1.005-1.030) Urine Protein Negative (NEGATIVE) Urine Glucose (UA) Negative (NEGATIVE) Urine Ketones Negative (NEGATIVE) Urine Occult Blood Negative (NEGATIVE) Urine Nitrite Negative (NEGATIVE) Urine Bilirubin Negative (NEGATIVE) Urine Urobilinogen 1.0 (0.2-1.0) mg/dL Ur Leukocyte Esterase Negative (NEGATIVE) Ketones 07/07/18 Range/Units 23:28 WBC (5.0-10.0) 10^3/uL RBC (4.6-6.2) 10^6/uL Hgb (14.0-18.0) g/dL Hct (40.0-54.0) % MCV (80-100) fL MCH (27.0-34.0) pg MCHC (33.0-35.0) g/dL Plt Count (150-450) 10^3/uL Neut % (Auto) (42.2-75.2) % Lymph % (Auto) (20.5-50.1) % [place] % (Auto) (2-8) % Eos % (Auto) (1.0-3.0) % Baso % (Auto) (0.0-1.0) % PT (9.0-12.0) SEC INR (0.9-1.2) Sodium (135-145) mmol/L Potassium (3.6-5.0) mmol/L Chloride (101-111) mmol/L Carbon Dioxide (21.0-31.0) mmol/L Anion Gap BUN (7-18) mg/dL Creatinine (0.6-1.3) mg/dL Est Cr Clr Drug Dosing mL/min Estimated GFR (MDRD) BUN/Creatinine Ratio Glucose (74-105) mg/dL POC Glucose 67 L (83-110) mg/dl Lactic Acid (0.5-2.2) mmol/L Calcium (8.4-10.2) mg/dl Total Bilirubin (0.2-1.0) mg/dL AST (10-42) IU/L ALT (10-60) IU/L Alkaline Phosphatase (42-121) IU/L CK-MB (CK-2) (0.4-4.7) ng/mL Troponin I (0.00-0.02) ng/ml B-Natriuretic Peptide (0-100) pg/ml Total Protein (6.7-8.2) g/dl Albumin (3.2-5.5) g/dl Globulin Albumin/Globulin Ratio Amylase (28-100) U/L Urine Color (YELLOW) Urine Appearance (CLEAR) Urine pH (5.0-9.0) Ur Specific [place] (1.005-1.030) Urine Protein (NEGATIVE) Urine Glucose (UA) (NEGATIVE) Urine Ketones (NEGATIVE) Urine Occult Blood (NEGATIVE) Urine Nitrite (NEGATIVE) Urine Bilirubin (NEGATIVE) Urine Urobilinogen (0.2-1.0) mg/dL Ur Leukocyte Esterase (NEGATIVE) Ketones Result Diagrams: 07/07/18 21:20 07/07/18 21:20 Peter Results Last 24 hrs: Microbiology 07/07/18 21:15 Anaerobic Blood Culture - Final Blood - Venous Problem List Initiated/Reviewed/Updated: Yes Orders Last 24hrs: Active Orders 24 hr Category Date Time Status Patient Status [ADT] Routine ADT 07/08/18 00:01 Active Blood Glucose Check, Bedside [RC] ONETIME Care 07/07/18 21:03 Active Blood Glucose Check, Bedside [RC] QIDACANDBED Care 07/08/18 00:01 Active Diabetes Education [RC] Click to Edit Care 07/08/18 00:02 Active EKG Documentation Completion [RC] URGENT Care 07/07/18 21:03 Active Glucose [Blood Glucose Check, Bedside] [RC] ONETIME Care 07/07/18 21:48 Active Glucose [Blood Glucose Check, Bedside] [RC] ONETIME Care 07/07/18 23:26 Active Oxygen Therapy [RC] PRN Care 07/08/18 00:01 Active VTE/DVT Education [RC] PER UNIT ROUTINE Care 07/08/18 00:01 Active Vital Signs [RC] Q4H Care 07/08/18 00:01 Active Regular Diet [DIET] Diet 07/08/18 Breakfast Active BASIC METABOLIC PANEL,BMP [CHEM] AM Lab 07/08/18 05:11 Ordered CBC WITH AUTO DIFF [HEME] AM Lab 07/08/18 05:11 Ordered CULTURE BLOOD [BC] Stat Lab 07/07/18 21:15 Results CULTURE BLOOD [BC] Stat Lab 07/07/18 21:20 Received Aspirin Med 07/08/18 09:00 Ordered 81 mg PO DAILY Citalopram [Celexa] Med 07/08/18 09:00 Ordered 20 mg PO DAILY ClonazePAM [KlonoPIN] Med 07/08/18 09:00 Ordered 0.5 mg PO BID Dextrose 5%-Normal Saline with KCl 20 mEq @ 75 mL/Hr ( Med 07/08/18 00:15 Ordered 1000 mL) Dextrose 5%-0.9% NaCl with KCl [D5 NS with 20 mEq KCl] 1,000 ml IV ASDIRECTED Heparin Sodium Med 07/08/18 06:00 Ordered 5,000 units SUBCUT Q8HR Isosorbide Dinitrate [Isosorbide Dinitrate] Med 07/08/18 09:00 Ordered 30 mg PO DAILY Losartan Potassium [Cozaar] Med 07/08/18 09:00 Ordered 100 mg PO DAILY Metoprolol Tartrate Med 07/08/18 09:00 Ordered 50 mg PO BID Ondansetron [Zofran] Med 07/08/18 00:01 Ordered 4 mg IVPUSH Q6H PRN Tamsulosin [Flomax] Med 07/08/18 09:00 Ordered 0.4 mg PO DAILY atorvaSTATin [Lipitor] Med 07/08/18 21:00 Ordered 20 mg PO BEDTIME traZODone Med 07/08/18 21:00 Ordered 50 mg PO BEDTIME Blood Culture x2 Reflex Set [OM.PC] Stat Oth 07/07/18 21:03 Ordered Glucose Management Sub Q Reflex [OM.PC] Click To Edit Oth 07/08/18 00:01 Ordered Resuscitation Status Routine Resus Stat 07/08/18 00:01 Ordered Medication Orders Heparin Sodium (Porcine) (Heparin Sodium) 5,000 units SUBCUT Q8HR STEVE Potassium Chloride/Dextrose/Sod Cl (D5 Ns With 20 Meq Kcl) 1,000 mls @ 75 mls/ hr IV ASDIRECTED STEVE Assessment/Plan Comment:: Hypoglycemia will hold all oral hypoglycemic agents hold insulin start patient on D5 saline check BMP in the morning check glucose ACHS Generalized weakness PT/OT Hypertension/CAD continue home medications DVT prophylaxis heparin
[2018-07-08] MEDS: Dextrose 5%-0.9% NaCl with KCl 1,000 ML IV SCH ×2 (00:58→14:01)
[2018-07-08] MEDS: Heparin Sodium 5,000 Units/ML Vial SUBCUT SCH ×3 (06:13→22:57)
[2018-07-08 07:09] LABS: ANION GAP 13.1; CHLORIDE,CL 107 mmol/L (101-111); SODIUM,NA 139 mmol/L (135-145)
[2018-07-08] MEDS: Citalopram 20 MG Tab PO SCH (10:35)
[2018-07-08] MEDS: Losartan 50 MG Tab PO SCH (10:35)
[2018-07-08] MEDS: Aspirin 81 MG Tab.Chew PO SCH (10:35)
[2018-07-08] MEDS: Tamsulosin 0.4 MG Cap.ER PO SCH (10:36)
[2018-07-08] MEDS: Isosorbide Dinitrate 10 MG Tab PO SCH (10:36)
[2018-07-08] MEDS: Metoprolol Tartrate 50 MG Tab PO SCH ×2 (10:38→20:51)
[2018-07-08] MEDS: ClonazePAM 0.5 MG Tab PO SCH ×2 (10:38→20:50)
[2018-07-08] MEDS: Polyethylene Glycol 3350 Powder 17 GM Packet PO SCH ×2 (12:37→20:49)
[2018-07-08] MEDS ORDERED: fentaNYL 25 MCG/HR Transdermal Patch TRDERM SCH (20:00)
[2018-07-08] MEDS: atorvaSTATin 10 MG Tab PO SCH (20:50)
[2018-07-08] MEDS: traZODone 50 MG Tab PO SCH (20:51)
[2018-07-08] MEDS: LORazepam 0.5 MG Tab PO PRN (20:51)
[2018-07-09] MEDS: Dextrose 5%-0.9% NaCl with KCl 1,000 ML IV SCH (03:55)
[2018-07-09] MEDS: Heparin Sodium 5,000 Units/ML Vial SUBCUT SCH ×3 (05:42→21:52)
[2018-07-09] MEDS: Polyethylene Glycol 3350 Powder 17 GM Packet PO SCH ×2 (09:41→21:46)
[2018-07-09] MEDS: Tamsulosin 0.4 MG Cap.ER PO SCH (09:43)
[2018-07-09] MEDS: Isosorbide Dinitrate 10 MG Tab PO SCH (09:43)
[2018-07-09] MEDS: Metoprolol Tartrate 50 MG Tab PO SCH ×2 (09:44→21:47)
[2018-07-09] MEDS: ClonazePAM 0.5 MG Tab PO SCH ×2 (09:44→21:46)
[2018-07-09] MEDS: Citalopram 20 MG Tab PO SCH (09:45)
[2018-07-09] MEDS: Losartan 50 MG Tab PO SCH (09:45)
[2018-07-09] MEDS: Aspirin 81 MG Tab.Chew PO SCH (09:46)
[2018-07-09] MEDS: Insulin Glarg,Human.Rec.Analog 100 UNIT/ML ML SUBCUT SCH (10:57)
--- NOTE | 2018-07-09 11:51 | PCM.PN ---
- General Info Date of Service: 07/09/18 Admission Dx/Problem (Free Text): Admission Diagnosis/Problem Admission Diagnosis/Problem Hypoglycemia Subjective Update: patient did not have any hypoglycemic episodes while in the hospital. He was on D5, and his glucoses was never too elevated. He denied any complaints. Patient expressed wishes to leave though after explaining to him that he is deconditioned,at risk for falling, he agreed to stay in the hospital for adjustment of insulin and PT evaluation. - Review of Systems General: Reports: No Symptoms HEENT: Reports: No Symptoms Pulmonary: Reports: No Symptoms Cardiovascular: Reports: No Symptoms Gastrointestinal: Reports: No Symptoms Genitourinary: Reports: No Symptoms Musculoskeletal: Reports: No Symptoms Skin: Reports: No Symptoms Neurological: Reports: No Symptoms Psychiatric: Reports: No Symptoms - Patient Data Vitals - Most Recent: Last Vital Signs Temp 36.9 C 07/08/18 20:00 Pulse 80 07/09/18 09:44 Resp 18 07/08/18 20:00 BP 138/72 07/09/18 09:45 Pulse Ox 95 07/08/18 20:00 Weight - Most Recent: 137.166 kg I&O - Last 24 Hours: Intake & Output 07/08/18 07/09/18 07/09/18 22:59 06:59 14:59 Intake Total 500 1051 Output Total 325 300 Balance 175 751 Lab Results Last 24 Hours: Laboratory Results - last 24 hr 07/08/18 07/08/18 07/09/18 Range/Units 16:51 21:08 07:37 POC Glucose 141 H 134 H 115 H (83-110) mg/dl Peter Results Last 24 Hours: Microbiology 07/07/18 21:15 Aerobic Blood Culture - Preliminary Blood - Venous NO GROWTH AFTER 1 DAY Anaerobic Blood Culture - Final 07/07/18 21:20 Aerobic Blood Culture - Preliminary Blood - Venous - Lab Draw NO GROWTH AFTER 1 DAY Anaerobic Blood Culture - Preliminary NO GROWTH AFTER 1 DAY Med Orders - Current: Current Medications Aspirin (Aspirin) 81 mg PO DAILY [facility] Last Admin: 07/09/18 09:46 Dose: 81 mg Atorvastatin Calcium (Lipitor) 20 mg PO BEDTIME [facility] Last Admin: 07/08/18 20:50 Dose: 20 mg Citalopram Hydrobromide (Celexa) 20 mg PO DAILY [facility] Last Admin: 07/09/18 09:45 Dose: 20 mg Clonazepam (Klonopin) 0.5 mg PO BID [facility] Last Admin: 07/09/18 09:44 Dose: 0.5 mg Fentanyl (Duragesic) 25 mcg TRDERM Q72H [facility] Last Admin: 07/08/18 19:59 Dose: 25 mcg Heparin Sodium (Porcine) (Heparin Sodium) 5,000 units SUBCUT Q8HR [facility] Last Admin: 07/09/18 05:42 Dose: 5,000 units Insulin Glargine (Lantus) 10 unit SUBCUT DAILY [facility] Last Admin: 07/09/18 10:57 Dose: 10 units Isosorbide Dinitrate (Isordil) 30 mg PO DAILY [facility] Last Admin: 07/09/18 09:43 Dose: 30 mg Lorazepam (Ativan) 0.5 mg PO BID PRN PRN Reason: Anxiety Last Admin: 07/08/18 20:51 Dose: 0.5 mg Losartan Potassium (Cozaar) 100 mg PO DAILY [facility] Last Admin: 07/09/18 09:45 Dose: 100 mg Metoprolol Tartrate (Lopressor) 50 mg PO BID [facility] Last Admin: 07/09/18 09:44 Dose: 50 mg Miscellaneous Information (Check Patch) 1 ea TRDERM DAILY [facility] Last Admin: 07/09/18 09:45 Dose: 1 ea Ondansetron HCl (Zofran) 4 mg IVPUSH Q6H PRN PRN Reason: Nausea/Vomiting Last Admin: 07/08/18 06:13 Dose: 4 mg Polyethylene Glycol (Miralax) 17 gm PO BID [facility] Last Admin: 07/09/18 09:41 Dose: 17 gm Tamsulosin HCl (Flomax) 0.4 mg PO DAILY [facility] Last Admin: 07/09/18 09:43 Dose: 0.4 mg Trazodone HCl (Trazodone) 50 mg PO BEDTIME [facility] Last Admin: 07/08/18 20:51 Dose: 50 mg Discontinued Medications Dextrose/Water (Dextrose 50% In Water) 50 ml IVPUSH ONETIME ONE Stop: 07/07/18 21:26 Last Admin: 07/07/18 21:40 Dose: 50 ml Dextrose/Water (Dextrose 50% In Water) 25 ml IVPUSH ONETIME ONE Stop: 07/07/18 23:32 Last Admin: 07/07/18 23:38 Dose: 25 ml Sodium Chloride (Normal Saline) 1,000 mls @ 999 mls/hr IV .BOLUS ONE Stop: 07/07/18 22:26 Last Infusion: 07/07/18 22:01 Dose: 150 mls/hr Potassium Chloride/Dextrose/Sod Cl (D5 Ns With 20 Meq Kcl) 1,000 mls @ 75 mls/ hr IV ASDIRECTED [facility] Last Admin: 07/09/18 03:55 Dose: 75 mls/hr Ondansetron HCl (Zofran) 4 mg IV ONETIME ONE Stop: 07/07/18 23:55 Last Admin: 07/07/18 23:59 Dose: 4 mg - Exam General: Alert, Oriented Lungs: Clear to Auscultation, Normal Respiratory Effort Cardiovascular: Regular Rate, Regular Rhythm GI/Abdominal Exam: Normal Bowel Sounds, Soft, Non-Tender Extremities: Normal Inspection, No Pedal Edema, Other (venous stasis changes over bilateral shins) Skin: Warm, Dry Neurological: No New Focal Deficit Psy/Mental Status: Alert, Normal Affect, Normal Mood - Problem List Review Problem List Initiated/Reviewed/Updated: Yes - My Orders Last 24 Hours: My Active Orders 07/08/18 12:19 Up With Assistance [RC] ASDIRECTED 07/08/18 12:30 Polyethylene Glycol 3350 [MiraLAX] 17 gm PO BID 07/08/18 18:40 LORazepam [Ativan] 0.5 mg PO BID PRN 07/08/18 20:00 fentaNYL [Duragesic] 25 mcg TRDERM Q72H 07/08/18 21:00 atorvaSTATin [Lipitor] 20 mg PO BEDTIME traZODone 50 mg PO BEDTIME 07/09/18 09:00 Check Patch 1 ea TRDERM DAILY 07/09/18 10:15 Insulin Glarg,Human.Rec.Analog [LantUS] 10 unit SUBCUT DAILY 07/09/18 10:26 Patient Status [ADT] Routine - Plan Plan:: Hypoglycemia will hold all oral hypoglycemic agents we'll give patient 10 units Lantus discontinue D5 check BMP in the morning check glucose ACHS Generalized weakness PT/OT Hypertension/CAD continue home medications DVT prophylaxis heparin
[2018-07-09] MEDS ORDERED: Sodium Chloride 0.9% 10 ML Syringe FLUSH PRN (18:30)
[2018-07-09] MEDS: traZODone 50 MG Tab PO SCH (21:46)
[2018-07-09] MEDS: LORazepam 0.5 MG Tab PO PRN (21:51)
[2018-07-09] MEDS: atorvaSTATin 10 MG Tab PO SCH (21:51)
[2018-07-10] MEDS: Heparin Sodium 5,000 Units/ML Vial SUBCUT SCH (05:21)
[2018-07-10] MEDS: Aspirin 81 MG Tab.Chew PO SCH (08:31)
[2018-07-10] MEDS: ClonazePAM 0.5 MG Tab PO SCH (08:31)
[2018-07-10] MEDS: Citalopram 20 MG Tab PO SCH (08:31)
[2018-07-10] MEDS: Losartan 50 MG Tab PO SCH (08:31)
[2018-07-10] MEDS: Tamsulosin 0.4 MG Cap.ER PO SCH (08:32)
[2018-07-10] MEDS: Isosorbide Dinitrate 10 MG Tab PO SCH (08:32)
[2018-07-10] MEDS: Metoprolol Tartrate 50 MG Tab PO SCH (08:32)
[2018-07-10] MEDS: Polyethylene Glycol 3350 Powder 17 GM Packet PO SCH (08:34)
[2018-07-10] MEDS: Insulin Glarg,Human.Rec.Analog 100 UNIT/ML ML SUBCUT SCH (08:36)
[2018-07-10 08:41] VITALS: BP 105/52
--- NOTE | 2018-07-10 11:02 | PCM.DCSUM1 ---
Discharge Summary - Hospital Course Free Text/Narrative:: Mr Rg is a 73 -year-old male with past medical history significant for hypertension, CAD, type 2 diabetes, history of liver cancer status post removal who presented to the emergency room one day after a fall and head trauma as well as progressive weakness. Patient had multiple falls in the weeks leading to his admission and there is concern about profound hypoglycemia. His dose of insulin Lantus was decreased initially from 85-55, and on presentation patient was still hypoglycemic. He was placed on D5. Her sugars remain in the 100s. Is later started on 10 units of Lantus, and no sliding scale insulin. There is discharged to a plan to follow-up closely with PCP for further adjustment of insulin. Diagnosis: Stroke: No - Discharge Data Discharge Date: 07/10/18 Discharge Disposition: Home, Self-Care 01 Condition: Fair - Patient Summary/Data Consults: Consultations 07/08/18 00:14 PT Evaluation and Treatment [CONS] Routine 07/08/18 00:15 OT Evaluation and Treatment [CONS] Routine - Discharge Plan *PRESCRIPTION DRUG MONITORING PROGRAM REVIEWED*: No *COPY OF PRESCRIPTION DRUG MONITORING REPORT IN PATIENT LOBO: No Prescriptions/Med Rec: Insulin Glarg,Human.Rec.Analog [Lantus] 10 unit SUBCUT DAILY #5 each Home Medications: Home Meds Citalopram [Celexa] 20 mg PO DAILY 11/07/15 [History] Krill/Om-3/DHA/EPA/Phospho/Ast [Krill Oil 500 mg Softgel] 1 each PO DAILY [History] Losartan Potassium [Cozaar] 100 mg PO DAILY 11/07/15 [History] Metoprolol Tartrate 50 mg PO BID 11/07/15 [History] Tamsulosin HCl 0.4 mg PO DAILY 11/07/15 [History] atorvaSTATin [Lipitor] 20 mg PO BEDTIME 11/07/15 [History] metFORMIN [Glucophage XR] 1,000 mg PO BIDMEALS 11/07/15 [History] traZODone 50 mg PO BEDTIME 11/07/15 [History] Aspirin 81 mg PO DAILY 07/07/18 [History] ClonazePAM [KlonoPIN] 0.5 mg PO BID 07/07/18 [History] Ibuprofen 200 mg PO ASDIRECTED PRN 07/07/18 [History] Isosorbide Dinitrate 30 mg PO DAILY 07/07/18 [History] LORazepam 1 mg PO Q12H PRN 07/08/18 [History] Polyethylene Glycol 3350 [MiraLAX] 17 gm PO DAILY 07/08/18 [History] fentaNYL [Duragesic] 1 patch TD Q72H 07/08/18 [History] Insulin Glarg,Human.Rec.Analog [Lantus] 10 unit SUBCUT DAILY #5 each 07/10/18 [ Rx] Patient Handouts: Preventing Hypoglycemia, Insulin Glargine injection, Hypoglycemia, [id number] Referrals: Beryl Syed, HYDRAULIC TECHNICIAN [Primary Care Provider] - - Discharge Summary/Plan Comment DC Time >30 min.: Yes - General Info Date of Service: 07/10/18 Admission Dx/Problem (Free Text: Admission Diagnosis/Problem Admission Diagnosis/Problem Hypoglycemia - Review of Systems General: Reports: No Symptoms HEENT: Reports: No Symptoms Pulmonary: Reports: No Symptoms Cardiovascular: Reports: No Symptoms Gastrointestinal: Reports: No Symptoms Genitourinary: Reports: No Symptoms Musculoskeletal: Reports: No Symptoms Skin: Reports: No Symptoms Neurological: Reports: No Symptoms Psychiatric: Reports: No Symptoms - Patient Data Vitals - Most Recent: Last Vital Signs Temp 36.8 C 07/10/18 08:00 Pulse 71 07/10/18 08:32 Resp 20 07/10/18 08:00 BP 119/52 L 07/10/18 08:32 Pulse Ox 99 07/10/18 08:00 Weight - Most Recent: 137.166 kg I&O - Last 24 hours: Intake & Output 07/09/18 07/10/18 07/10/18 22:59 06:59 14:59 Intake Total 475 120 Balance 475 120 Lab Results - Last 24 hrs: Laboratory Results - last 24 hr 07/09/18 07/09/18 07/09/18 Range/Units 12:16 13:29 17:06 POC Glucose 139 H 145 H 120 H (83-110) mg/dl 07/09/18 07/10/18 Range/Units 21:12 08:05 POC Glucose 137 H 107 (83-110) mg/dl ARNAUD Results - Last 24 hrs: Microbiology 07/07/18 21:15 Aerobic Blood Culture - Preliminary Blood - Venous NO GROWTH AFTER 2 DAYS Anaerobic Blood Culture - Final 07/07/18 21:20 Aerobic Blood Culture - Preliminary Blood - Venous - Lab Draw NO GROWTH AFTER 2 DAYS Anaerobic Blood Culture - Preliminary NO GROWTH AFTER 2 DAYS Med Orders - Current: Current Medications Aspirin (Aspirin) 81 mg PO DAILY [facility] Last Admin: 07/10/18 08:31 Dose: 81 mg Atorvastatin Calcium (Lipitor) 20 mg PO BEDTIME [facility] Last Admin: 07/09/18 21:51 Dose: 20 mg Citalopram Hydrobromide (Celexa) 20 mg PO DAILY [facility] Last Admin: 07/10/18 08:31 Dose: 20 mg Clonazepam (Klonopin) 0.5 mg PO BID [facility] Last Admin: 07/10/18 08:31 Dose: 0.5 mg Fentanyl (Duragesic) 25 mcg TRDERM Q72H [facility] Last Admin: 07/08/18 19:59 Dose: 25 mcg Heparin Sodium (Porcine) (Heparin Sodium) 5,000 units SUBCUT Q8HR [facility] Last Admin: 07/10/18 05:21 Dose: 5,000 units Insulin Glargine (Lantus) 10 unit SUBCUT DAILY [facility] Last Admin: 07/10/18 08:36 Dose: 10 units Isosorbide Dinitrate (Isordil) 30 mg PO DAILY [facility] Last Admin: 07/10/18 08:32 Dose: 30 mg Lorazepam (Ativan) 0.5 mg PO BID PRN PRN Reason: Anxiety Last Admin: 07/09/18 21:51 Dose: 0.5 mg Losartan Potassium (Cozaar) 100 mg PO DAILY [facility] Last Admin: 07/10/18 08:31 Dose: 100 mg Metoprolol Tartrate (Lopressor) 50 mg PO BID [facility] Last Admin: 07/10/18 08:32 Dose: 50 mg Miscellaneous Information (Check Patch) 1 ea TRDERM BID [facility] Last Admin: 07/10/18 08:41 Dose: 1 ea Miscellaneous Information (Remove Patch) 1 ea TRDERM Q72H [facility] Ondansetron HCl (Zofran) 4 mg IVPUSH Q6H PRN PRN Reason: Nausea/Vomiting Last Admin: 07/08/18 06:13 Dose: 4 mg Polyethylene Glycol (Miralax) 17 gm PO BID [facility] Last Admin: 07/10/18 08:34 Dose: 17 gm Sodium Chloride (Saline Flush) 10 ml FLUSH ASDIRECTED PRN PRN Reason: Keep Vein Open Tamsulosin HCl (Flomax) 0.4 mg PO DAILY [facility] Last Admin: 07/10/18 08:32 Dose: 0.4 mg Trazodone HCl (Trazodone) 50 mg PO BEDTIME [facility] Last Admin: 07/09/18 21:46 Dose: 50 mg Discontinued Medications Dextrose/Water (Dextrose 50% In Water) 50 ml IVPUSH ONETIME ONE Stop: 07/07/18 21:26 Last Admin: 07/07/18 21:40 Dose: 50 ml Dextrose/Water (Dextrose 50% In Water) 25 ml IVPUSH ONETIME ONE Stop: 07/07/18 23:32 Last Admin: 07/07/18 23:38 Dose: 25 ml Sodium Chloride (Normal Saline) 1,000 mls @ 999 mls/hr IV .BOLUS ONE Stop: 07/07/18 22:26 Last Infusion: 07/07/18 22:01 Dose: 150 mls/hr Potassium Chloride/Dextrose/Sod Cl (D5 Ns With 20 Meq Kcl) 1,000 mls @ 75 mls/ hr IV ASDIRECTED [facility] Last Admin: 07/09/18 03:55 Dose: 75 mls/hr Miscellaneous Information (Check Patch) 1 ea TRDERM DAILY [facility] Last Admin: 07/09/18 09:45 Dose: 1 ea Ondansetron HCl (Zofran) 4 mg IV ONETIME ONE Stop: 07/07/18 23:55 Last Admin: 07/07/18 23:59 Dose: 4 mg - Exam General: Reports: Alert, Oriented Lungs: Reports: Clear to Auscultation, Normal Respiratory Effort Cardiovascular: Reports: Regular Rate, Regular Rhythm GI/Abdominal Exam: Normal Bowel Sounds, Soft, Non-Tender, No Distention Extremities: Pedal Edema (+1) Skin: Reports: Warm, Dry, Intact, Other (venous stasis changes of bilateral shins) Neurological: Reports: No New Focal Deficit Psy/Mental Status: Reports: Alert, Normal Affect, Normal Mood
== END 2018-07-10 12:00 | disposition home or self-care (01) | DRG 639 ==
LOC: DL.ED 20:47 → DL.MS 23:52 → UNDOADMOB 23:52 → DL.MS 07-08 00:01 → OBSVTOIN 07-09 10:26
PROVIDERS: ADMIT Internal Medicine; ATTEND Internal Medicine
DX: E11.649 Type 2 diabetes mellitus with hypoglycemia without coma (principal); I10 Essential (primary) hypertension; I25.10 Atherosclerotic heart disease of native coronary artery without angina pectoris; H91.90 Unspecified hearing loss, unspecified ear; H54.7 Unspecified visual loss; J44.9 Chronic obstructive pulmonary disease, unspecified; R53.1 Weakness; W18.30XA Fall on same level, unspecified, initial encounter; G89.4 Chronic pain syndrome; M25.559 Pain in unspecified hip; Z87.891 Personal history of nicotine dependence; Z85.05 Personal history of malignant neoplasm of liver; Z88.8 Allergy status to other drugs, medicaments and biological substances; Z79.4 Long term (current) use of insulin; Z79.82 Long term (current) use of aspirin; Z79.899 Other long term (current) drug therapy; Y92.009 Unspecified place in unspecified non-institutional (private) residence as the place of occurrence of the external cause; I25.2 Old myocardial infarction
CPT/HCPCS: 36415; 70450; 71045; 72125; 80048; 80053; 81003; 82009; 82150; 82553; 82962; 83605; 83880; 84484; 85025; 85610; 87040; 93005; 96361; 96372; 96374; 96375; 96376; 97162-GP; 97165-GO; 99285-25; A9270-GY; G0378; J1644; J1815-GY; J2405; J3480; J7030; J7060